=== PATIENT | female | born 1975 | race Caucasian/White ===

== ENCOUNTER 2019-01-31 10:46 | Emergency (ER) | payer MEDICAID ==
[2019-01-31] MEDS: KETOROLAC 60 MG INJ IM (12:57)
== END 2019-01-31 13:24 | disposition home or self-care (01) ==
LOC: FTE 10:46
DX: S13.9XXA Sprain of joints and ligaments of unspecified parts of neck, initial encounter (principal); I10 Essential (primary) hypertension; V49.40XA Driver injured in collision with unspecified motor vehicles in traffic accident, initial encounter
CPT/HCPCS: 71045; 72040; 81025; 93005; 96372; 99284-25